=== PATIENT | male | born 1965 | race Caucasian/White ===

== ENCOUNTER 2017-07-09 08:00 | Outpatient (CLI) | payer OTHER ==
[2017-07-09 19:46] LABS: ALBUMIN 4.4 g/dL (3.2-5.5); ALBUMIN/GLOBULIN RATIO 1.8 (1.0-2.2); ALKALINE PHOSPHATASE 50 IU/L (42-121); ALT ALANINE AMINOTRANSFERASE 48 IU/L (10-60); AST ASPARTATE AMINOTRANSFERASE 31 IU/L (10-42); BILIRUBIN,TOTAL 0.6 mg/dL (0.2-1.0); BUN - BLOOD UREA NITROGEN 16 mg/dL (6-20); CALCIUM 9.5 mg/dL (8.5-10.3); CARBON DIOXIDE - CO2 25 mmol/L (21-32); CHLORIDE 105 mmol/L (101-111); CREATININE 0.8 mg/dL (0.6-1.2); GFR - MDRD 101 (>89); GLUCOSE 98 mg/dL (70-100); SODIUM 137 mmol/L (135-145); TOTAL PROTEIN 6.9 g/dL (6.7-8.2)
== END 2017-07-09 08:01 ==
LOC: LAB.WCP 08:00
PROVIDERS: ATTEND Family Medicine
DX: R63.4 Abnormal weight loss (principal)
CPT/HCPCS: 36415; 80053; 84443

== ENCOUNTER 2017-09-05 14:32 | Outpatient (CLI) | payer OTHER ==
--- NOTE | 2017-09-06 10:03 | Ultrasound Report ---
Procedure Date: 09/05/2017 Accession Number: [id number] / [id number] Procedure: US - Ankle Brachial Index CPT Code: FULL RESULT: EXAM: ULTRASOUND ANKLE-BRACHIAL INDEX EXAM DATE: 09/05/2017 03:40 PM. CLINICAL HISTORY: VARICOSE VEIN. Leg pain. COMPARISON: None. TECHNIQUE: Systolic blood pressures of the bilateral brachial arteries and posterior tibial arteries were measured. Doppler evaluation of the bilateral posterior tibial and dorsalis pedis arteries was performed. FINDINGS: Right: Brachial artery pressure: 112/60. Posterior tibial artery pressure: 119/ 64. Ankle/arm index: 1.04. Posterior tibial artery peak systolic velocity: 92 cm/s. Monophasic waveform. Dorsalis pedis artery peak systolic velocity: 33 cm/s. Monophasic waveform. Left: Brachial artery pressure: 114/66. Posterior tibial artery pressure: 113/65. Ankle/arm index: 0.99. Posterior tibial artery peak systolic velocity: 77 cm/s. Triphasic waveform. Dorsalis pedis artery peak systolic velocity: 58 cm/s. Triphasic waveform. IMPRESSION: 1. Right ankle brachial index: 1.04. 2. Left ankle brachial index: 0.99. RADIA
== END 2017-09-05 14:33 | disposition home or self-care (01) ==
LOC: DI 14:32
PROVIDERS: ATTEND Family Medicine
DX: M79.606 Pain in leg, unspecified (principal)
CPT/HCPCS: 93922

== ENCOUNTER 2020-07-18 17:56 | Emergency (ER) | payer MEDICAID, OTHER ==
[2020-07-18 18:10] VITALS: BP 123/73
--- OUTSIDE RECORDS SUMMARY | 2020-07-18 18:18 | EXTERNAL MEDICAL SUMMARY RPT | Continuity of Care Document ---
:1965 Demographics Phone Unavailable Preferred Language Unknown Marital Status Unknown Hindu Affiliation Unknown Race Unknown Ethnic Group Unknown Author Organization [facility] Address [address] [place] [address] Phone Social History date description facility [id number]
[2020-07-18] MEDS ORDERED: HYDROmorphone 1 MG/ML CARPUJECT IM STA (18:29)
--- NOTE | 2020-07-18 18:31 | ED Physician Documentation ---
PD HPI UPPER EXT INJURY - Stated complaint Stated Complaint: RT SIDE TINGLE/NO SLEEP - Chief complaint Chief Complaint: Ext Problem - History obtained from History obtained from: Patient - Additonal information Additional information: 55-year-old gentleman was awoken by pain at the top of the right scapula yesterday morning around 1 AM. Pain is sharp and better if he puts his right arm behind his head and flexes his neck. He has tried a lidocaine patch, naproxen and went to the walk-in clinic where he got some Flexeril. None of these been helpful. He denies fevers, chills, shortness of breath, cough. Noticed today that he had some transitory numbness in the right arm, When prompted where the symptoms were he said the first through third fingers, notes that it was worse after doing a lot of writing and filling his taxes out. Review of Systems Constitutional: denies: Fever, Chills Ears: denies: Loss of hearing, Ear pain Nose: denies: Rhinorrhea / runny nose, Congestion Cardiac: denies: Chest pain / pressure, Palpitations Respiratory: denies: Dyspnea, Cough PD PAST MEDICAL HISTORY - Present Medications Home Medications: Ambulatory Orders Medication Instructions Recorded Confirmed HYDROcod/ACETAM 5/325 [[place] 5/325] 1 - 2 tab PO Q6H PRN #15 tablet 07/18/20 - Allergies Allergies/Adverse Reactions: Allergies Allergy/AdvReac Type Severity Reaction Status Date / Time No Known Drug Allergies Allergy Verified 07/18/20 18:10 PD ED PE NORMAL - Vitals Vital signs reviewed: Yes - General General: Alert and oriented X 3, Other (He is holding both hands behind his head with his neck flexed although he does not seem to wince when he drops his hands or extends his neck.) - HEENT HEENT: PERRL, EOMI - Neck Neck: Supple, no meningeal sign, No bony TTP - Cardiac Cardiac: RRR, No murmur - Respiratory Respiratory: No respiratory distress, Clear bilaterally - Abdomen Abdomen: Non tender - Derm Derm: No rash - Extremities Extremities: Other (He has a lidocaine patch over the superior portion of the right scapula. 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 He has some symptoms in his hand, it is actually more consistent with carpal tunnel whenever anything else. No primary neck pain. Chest x-ray done without pertinent positive findings. Feeling better after meds here. Close follow-up was advised. Departure - Departure Disposition: 01 Home, Self Care Clinical Impression: Upper back pain, Neuropathy Condition: Good Record reviewed to determine appropriate education?: Yes Instructions: ED Acute Pain [facility] Prescriptions: HYDROcod/ACETAM 5/325 [[place] 5/325] 1 - 2 tab PO Q6H PRN #15 tablet PRN Reason: Pain Comments: Imperative to follow-up with your primary care physician this week for recheck and further evaluation and treatment. Return for new or worsening symptoms. You can Continue the muscle relaxer the urgent care today view in addition to the medications given here. Do not drink or drive while taking narcotic pain medication. Note that many narcotic pain relievers also contain Tylenol/acetaminophen. Please ensure that your total dose of acetaminophen from all sources does not exceed 3 g (3000 mg) per day. You may get constipated while on this medication. Take a stool softener such as Colace twice a day while you are on it. Also add an thbe-ruj-[id number] laxative such as senna or MiraLAX on any day that you do not have a bowel movement. If you received a narcotic pain medication or sedative while in the emergency department, do not drive for the next 24 hours. Discharge Date/Time: 07/18/20 19:59
--- NOTE | 2020-07-18 19:20 | XRAY Report ---
PROCEDURE: Chest 2 View X-Ray INDICATIONS: R upper back pain TECHNIQUE: 2 view(s) of the chest. COMPARISON: None. FINDINGS: Surgical changes and devices: None. Lungs and pleura: No pleural effusions or pneumothorax. Lungs are clear. Mediastinum: Mediastinal contours are normal. Heart size is normal. Bones and chest wall: No suspicious bony abnormalities. Soft tissues appear unremarkable. IMPRESSION: No acute disease. Reviewed by: Silverio Ureña MD on 07/18/2020 7:19 PM PDT Approved by: Silverio Ureña MD on 07/18/2020 7:19 PM PDT Station ID: [id number]
[2020-07-18] MEDS ORDERED: HYDROcod/ACET 5/325 Prepack 4 PO STA (19:33)
== END 2020-07-18 19:59 | disposition home or self-care (01) ==
LOC: ED 17:56
DX: M54.6 Pain in thoracic spine (principal); G62.9 Polyneuropathy, unspecified
CPT/HCPCS: 71046; 96372; 99283; 99284; J1170

== ENCOUNTER 2020-10-19 19:19 | Outpatient (CLI) | payer MEDICAID | END 2020-10-19 19:20 | disposition critical access hospital (66) | LOC: EMS 19:19 | DX: R55 Syncope and collapse (principal) | CPT/HCPCS: A0425; A0427; A0999 ==

== ENCOUNTER 2020-10-19 19:21 | Emergency (ER) | payer MEDICAID ==
[2020-10-19 20:05] LABS: BASOPHILS # (AUTO) 0.1 10^3/uL (0.0-0.1); BASOPHILS % (AUTO) 0.9 %; EOSINOPHILS # (AUTO) 0.3 10^3/uL (0.0-0.7); EOSINOPHILS % (AUTO) 3.7 %; LYMPHOCYTES # (AUTO) 2.7 10^3/uL (1.5-3.5); LYMPHOCYTES % (AUTO) 33.4 %; MEAN CORPUSCULAR HEMOGLOBIN 31.9 pg (27.0-31.0); MEAN CORPUSCULAR HGB CONC 33.3 g/dL (32.0-36.0); MEAN CORPUSCULAR VOLUME 95.8 fL (80.0-94.0); MEAN PLATELET VOLUME 8.9 fL (7.4-11.4); MONOCYTES # (AUTO) 0.3 10^3/uL (0.0-1.0); MONOCYTES % (AUTO) 4.2 %; NEUTROPHILS # (AUTO) 4.7 10^3/uL (1.5-6.6); NEUTROPHILS % (AUTO) 57.7 %; PLT - PLATELET COUNT 294 10^3/uL (130-450); RED BLOOD COUNT 4.07 10^6/uL (4.70-6.10); RED CELL DISTRIBUTION WIDTH 12.8 % (12.0-15.0); WHITE BLOOD COUNT 8.2 x10^3/uL (4.8-10.8)
[2020-10-19 20:14] LABS: ALBUMIN 4.2 g/dL (3.2-5.5); ALKALINE PHOSPHATASE 43 IU/L (42-121); ALT ALANINE AMINOTRANSFERASE 15 IU/L (10-60); AST ASPARTATE AMINOTRANSFERASE 19 IU/L (10-42); BILIRUBIN,TOTAL 0.7 mg/dL (0.2-1.0); BUN - BLOOD UREA NITROGEN 16 mg/dL (6-20); CALCIUM 9.1 mg/dL (8.5-10.3); CARBON DIOXIDE - CO2 26 mmol/L (21-32); CHLORIDE 103 mmol/L (101-111); CREATININE 0.9 mg/dL (0.6-1.2); GFR - MDRD 87 (>89); GLUCOSE 100 mg/dL (70-100); POTASSIUM 3.8 mmol/L (3.5-5.0); SODIUM 137 mmol/L (135-145); TOTAL PROTEIN 6.1 g/dL (6.7-8.2)
[2020-10-19 20:15] LABS: ALBUMIN/GLOBULIN RATIO 2.2 (1.0-2.2); ETOH - ETHANOL < 5.0 mg/dL
[2020-10-19] MEDS ORDERED: CIPROFLOX/DEXAMETH OTIC DROPS RIGHTEAR SCH (21:00)
--- NOTE | 2020-10-19 21:13 | ED Physician Documentation ---
History of Present Illness - Stated complaint Stated Complaint: SYNCOPE - Chief complaint Chief Complaint: Neuro - History obtained from History obtained from: Patient - Additonal information Additional information: 55-year-old man presents from walk-in clinic after fainting while urinating. Patient was there for follow-up after having a right-sided ear infection that resolved with antibiotic eardrops. He came back in because he started to have pain again today and then fainted while in the restroom. Patient states he had preceding nausea and then threw up after coming to. he had about 20 sec interval of unconsciousness. Review of Systems Ten Systems: 10 systems reviewed and negative Constitutional: denies: Fever, Chills Ears: reports: Ear pain, Drainage/discharge Cardiac: denies: Chest pain / pressure, Palpitations Respiratory: denies: Dyspnea GI: reports: Nausea, Vomiting. denies: Abdominal Pain, Diarrhea : denies: Dysuria Musculoskeletal: denies: Back pain Neurologic: reports: Syncope. denies: Focal weakness, Numbness, Headache, Head injury PD PAST MEDICAL HISTORY - Past Medical History Musculoskeletal: Chronic back pain - Past Surgical History Past Surgical History: Yes General: Other Ortho: Other - Allergies Allergies/Adverse Reactions: Allergies Allergy/AdvReac Type Severity Reaction Status Date / Time No Known Drug Allergies Allergy Verified 07/18/20 18:10 - Social History Does the pt smoke?: Yes Smoking Status: Current every day smoker Does the pt drink ETOH?: No Does the pt have substance abuse?: Yes - Immunizations Immunizations are current?: Yes PD ED PE NORMAL - Vitals Vital signs reviewed: Yes - General General: Alert and oriented X 3, No acute distress, Well developed/nourished - HEENT HEENT: Atraumatic, PERRL, EOMI, Other (R otitis externa. L TM and aud canal clear) - Neck Neck: Supple, no meningeal sign - Cardiac Cardiac: RRR - Respiratory Respiratory: No respiratory distress, Clear bilaterally - Abdomen Abdomen: Non tender, Non distended - Back Back: No CVA TTP, No spinal TTP - Derm Derm: Normal color - Extremities Extremities: No deformity - Neuro Neuro: Alert and oriented X 3, hand shoes sewer 2-12 intact, No motor deficit, No sensory deficit, Normal speech, Other (normal gait) - Psych Psych: Normal mood, Normal affect Results - Vitals Vitals: Vital Signs - 24 hr 10/19/20 10/19/20 10/19/20 19:25 19:34 19:52 Temperature 36.6 C Heart Rate 69 64 Heart Rate [ 65 Sitting] Heart Rate [ 68 Standing] Heart Rate [ 62 Supine] Respiratory 12 Rate Blood Pressure 125/83 H 126/85 H Blood Pressure 124/86 H [Sitting] Blood Pressure 128/92 H [Standing] Blood Pressure 112/74 [Supine] O2 Saturation 99 99 10/19/20 21:22 Temperature Heart Rate 63 Heart Rate [ Sitting] Heart Rate [ Standing] Heart Rate [ Supine] Respiratory Rate Blood Pressure 117/62 Blood Pressure [Sitting] Blood Pressure [Standing] Blood Pressure [Supine] O2 Saturation 100 Oxygen O2 Source Room air - EKG (time done) 1929 Rate: Rate (enter#) (56) Rhythm: Sinus bradycardia Palmer: Normal Intervals: Normal CT QRS: Normal Ischemia: Normal ST segments - Labs Labs: Laboratory Tests 10/19/20 10/19/20 10/19/20 19:56 19:56 19:56 WBC 8.2 RBC 4.07 L Hgb 13.0 L Hct 39.0 L MCV 95.8 H MCH 31.9 H MCHC 33.3 RDW 12.8 Plt Count 294 MPV 8.9 Neut # (Auto) 4.7 Lymph # (Auto) 2.7 Labette # (Auto) 0.3 Eos # (Auto) 0.3 Baso # (Auto) 0.1 Absolute Nucleated RBC 0.00 Nucleated RBC % 0.0 Sodium 137 Potassium 3.8 Chloride 103 Carbon Dioxide 26 Anion Gap 8.0 BUN 16 Creatinine 0.9 Estimated GFR (MDRD) 87 L Glucose 100 Calcium 9.1 Magnesium 2.0 Total Bilirubin 0.7 AST 19 ALT 15 Alkaline Phosphatase 43 Troponin I High Sens 2.4 Total Protein 6.1 L Albumin 4.2 Globulin 1.9 L Albumin/Globulin Ratio 2.2 Ethyl Alcohol < 5.0 PD MEDICAL DECISION MAKING - ED course ED course: 55-year-old man presents status post syncope while urinating at the walk-in clinic, also with right otitis externa. I offered the patient observation for echocardiogram but he declined, preferring to follow-up outpatient with his primary doctor. Strict return precautions given. Antibiotic eardrops provided. Departure - Departure Disposition: 01 Home, Self Care Clinical Impression: Syncope Condition: Good Instructions: Understanding Vasovagal Syncope Follow-Up: DOC GERARD MD [Physician No Access] - Comments: You were seen in the emergency department for a fainting episode at the walk-in clinic. Because it occurred in conjunction with urination, this is likely a micturition syncope (fainting spell related to urination). Your EKG, lab work, and physical exam uncovered no emergent findings. Please follow-up with your primary doctor this week and return to the emergency department if you have any new or worsening symptoms or other concerns. Please also follow-up with your primary doctor for referral to ear nose and throat in regards to your ear pain. Continue your antibiotic eardrops twice daily until complete. Discharge Date/Time: 10/19/20 21:22
[2020-10-19 21:23] VITALS: BP 117/62
== END 2020-10-19 21:22 | disposition home or self-care (01) ==
LOC: EDUNIT# → ED 19:21
DX: R55 Syncope and collapse (principal); H60.91 Unspecified otitis externa, right ear; R00.1 Bradycardia, unspecified; F17.200 Nicotine dependence, unspecified, uncomplicated
CPT/HCPCS: 36415; 80053; 80320; 83735; 84484; 85025; 93005; 99283; 99284; A9270

== ENCOUNTER 2020-11-19 09:06 | Outpatient (CLI) | payer MEDICAID ==
[2020-11-19 12:57] LABS: CHOL/HDL RATIO 3.6 (<5.0); CHOLESTEROL 214 mg/dL; HDL CHOLESTEROL 59 mg/dL; LDL CHOLESTEROL,CALCULATED 141 mg/dL; LDL/HDL RATIO 2.4 (<3.6); TRIGLYCERIDES 72 mg/dL; VLDL CHOLESTEROL 14 mg/dL
== END 2020-11-19 23:59 | disposition home or self-care (01) ==
LOC: LAB.WCP 09:06
PROVIDERS: ATTEND Nurse Practitioner
DX: E78.5 Hyperlipidemia, unspecified (principal); Z12.5 Encounter for screening for malignant neoplasm of prostate
CPT/HCPCS: 36415; 80061; 83721; 84153

== ENCOUNTER 2020-12-27 08:07 | Outpatient (CLI) | payer MEDICAID ==
[2020-12-27 12:20] LABS: BASOPHILS # (AUTO) 0.1 10^3/uL (0.0-0.1); BASOPHILS % (AUTO) 1.1 %; EOSINOPHILS # (AUTO) 0.3 10^3/uL (0.0-0.7); EOSINOPHILS % (AUTO) 4.4 %; HCT - HEMATOCRIT 43.7 % (42.0-52.0); HGB - HEMOGLOBIN 14.3 g/dL (14.0-18.0); LYMPHOCYTES # (AUTO) 2.9 10^3/uL (1.5-3.5); LYMPHOCYTES % (AUTO) 43.9 %; MEAN CORPUSCULAR HGB CONC 32.7 g/dL (32.0-36.0); MEAN CORPUSCULAR VOLUME 94.8 fL (80.0-94.0); MEAN PLATELET VOLUME 9.4 fL (7.4-11.4); MONOCYTES # (AUTO) 0.4 10^3/uL (0.0-1.0); MONOCYTES % (AUTO) 5.9 %; NEUTROPHILS # (AUTO) 2.9 10^3/uL (1.5-6.6); NEUTROPHILS % (AUTO) 44.5 %; PLT - PLATELET COUNT 356 10^3/uL (130-450); RED BLOOD COUNT 4.61 10^6/uL (4.70-6.10); WHITE BLOOD COUNT 6.6 x10^3/uL (4.8-10.8)
[2020-12-27 12:32] LABS: BILIRUBIN,URINE NEGATIVE (NEGATIVE); GLUCOSE, URINE (UA) NEGATIVE (NEGATIVE); KETONES,URINE (UA) NEGATIVE (NEGATIVE); LEUKOCYTE ESTERASE, URINE NEGATIVE (NEGATIVE); NITRITE,URINE NEGATIVE (NEGATIVE); OCCULT BLOOD,URINE NEGATIVE (NEGATIVE); PH,URINE 7.5 PH (5.0-7.5); PROTEIN,URINE NEGATIVE (NEGATIVE); UROBILINOGEN,URINE 0.2 (NORMAL) E.U./dL (NORMAL)
[2020-12-27 12:39] LABS: BACTERIA,URINE None Seen /HPF (None Seen); CLARITY,URINE CLEAR (CLEAR); RBC,URINE 0-5 /HPF (0-5); SQUAMOUS EPITHELIAL CELL,UR RARE Squamous (<= Few); WBC,URINE 0-3 /HPF (0-3)
[2020-12-27 13:29] LABS: ALBUMIN 4.2 g/dL (3.2-5.5); ALBUMIN/GLOBULIN RATIO 1.8 (1.0-2.2); BILIRUBIN,TOTAL 1.1 mg/dL (0.2-1.0); CALCIUM 9.5 mg/dL (8.5-10.3); CREATININE 0.9 mg/dL (0.6-1.2); POTASSIUM 3.9 mmol/L (3.5-5.0); TOTAL PROTEIN 6.5 g/dL (6.7-8.2)
== END 2020-12-27 23:59 | disposition home or self-care (01) ==
LOC: LAB.WCP 08:07
PROVIDERS: ATTEND Nurse Practitioner
DX: R10.13 Epigastric pain (principal)
CPT/HCPCS: 36415; 80053; 81001; 82150; 83690; 85025; 87086

== ENCOUNTER 2021-02-18 08:24 | Day surgery (SDC) | payer MEDICAID ==
[2021-02-18] MEDS ORDERED: LACTATED RINGERS 1,000 ML IV ONE ×2 (08:28→10:26)
--- NOTE | 2021-02-18 08:51 | ANESTHESIA ---
Pre-Anesthesia VS, & Labs - Diagnosis Epigastric pain and colon screening - Procedure EGD and Colonoscopy Vital Signs: Temp Pulse Resp BP Pulse Ox 36.7 C 72 12 137/89 H 100 02/18/21 08:30 02/18/21 08:30 02/18/21 08:30 02/18/21 08:30 02/18/21 08:30 Height: 5 ft 9 in Weight (kg): 63.7 kg Body Mass Index: 20.7 BMI Classification: Healthy weight - NPO >8 hours Home Medications and Allergies Home Medications: Ambulatory Orders Atorvastatin [Lipitor] 1 tab ORAL DAILY 02/16/21 Cholecalciferol (Vitamin D3) [Vitamin D3] 1,250 mcg PO DAILY 02/16/21 Curcumin 10 gm MC DAILY 02/16/21 Glutamine/Inulin/B5/Zinc/Aloe [Medcaps Gi Capsule] 1 each PO 02/16/21 Ary-3/Dha/Epa/Fish Oil [Fish Oil 1,000 mg Softgel] 1 each PO DAILY 02/16/21 traZODone [Desyrel] 50 mg PO HS 02/16/21 Atorvastatin [Lipitor] 1 tab ORAL DAILY 02/16/21 Cholecalciferol (Vitamin D3) [Vitamin D3] 1,250 mcg PO DAILY 02/16/21 Curcumin 10 gm MC DAILY 02/16/21 Glutamine/Inulin/B5/Zinc/Aloe [Medcaps Gi Capsule] 1 each PO 02/16/21 Ary-3/Dha/Epa/Fish Oil [Fish Oil 1,000 mg Softgel] 1 each PO DAILY 02/16/21 traZODone [Desyrel] 50 mg PO HS 02/16/21 Allergies/Adverse Reactions: Allergies Allergy/AdvReac Type Severity Reaction Status Date / Time ibuprofen Allergy Rash Verified 02/16/21 13:51 Anes History & Medical History - Anesthetic History Anesthesia Complications: reports: No previous complications - Medical History Cardiovascular: reports: High cholesterol Pulmonary: reports: None Gastrointestinal: reports: None Urinary: reports: None Neuro: reports: None Musculoskeletal: reports: Chronic back pain Endocrine/Autoimmune: reports: None Blood Disorders: reports: None Skin: reports: None Smoking Status: Former smoker (Quit 11/2020) Psychosocial: reports: Anxiety History of Cancer?: No - Surgical History General: reports: Other Orthopedic: reports: Other Exam General: Alert, Oriented x3, Cooperative, No acute distress Dental: WNL Mouth Openin Fingerbreadth Neck Mobility: Normal Mallampati classification: II Thyromental Distance: 4-6 cm Mental/Cognitive Status: Alert/Oriented X3, Normal for patient Plan Anesthesia Type: Total IV Consent for Procedure(s) Verified and Reviewed: Yes Code Status: Attempt Resuscitation ASA classification: 2-Mild systemic disease Is this case an emergency?: No
[2021-02-18] MEDS ORDERED: PROPOFOL 500 MG/50 ML 500 MG/50 ML VIAL ONE (08:59)
[2021-02-18] MEDS ORDERED: LIDOCAINE-MPF 2% 5 ML VIAL ONE (08:59)
--- NOTE | 2021-02-18 09:28 | HISTORY & PHYSICAL EXAMINATION ---
Chief Complaint - Chief Complaint Chief Complaint: epigastric pain History of Present Illness - History Obtained From Records Reviewed: yes History obtained from: pt Exam Limitations: none - History of Present Illness HPI Comment/Other: History epigastric pain and weight loss. Starting to feel better. History - Past Medical History Cardiovascular: reports: High cholesterol Respiratory: reports: None Neuro: reports: None Endocrine/Autoimmune: reports: None GI: reports: None : reports: None HEENT: reports: None Psych: reports: Anxiety Musculoskeletal: reports: Chronic back pain Derm: reports: None MRSA Hx?: No - Past Surgical History General: reports: Other Ortho: reports: Other Meds/Allgy - Home Medications Home Medications: Ambulatory Orders Medication Instructions Recorded Confirmed Atorvastatin [Lipitor] 1 tab ORAL DAILY 02/16/21 02/16/21 Cholecalciferol (Vitamin D3) 1,250 mcg PO DAILY 02/16/21 02/16/21 [Vitamin D3] Curcumin 10 gm MC DAILY 02/16/21 02/16/21 Glutamine/Inulin/B5/Zinc/Aloe 1 each PO 02/16/21 [Medcaps Gi Capsule] Early-3/Dha/Epa/Fish Oil [Fish Oil 1 each PO DAILY 02/16/21 02/16/21 1,000 mg Softgel] traZODone [Desyrel] 50 mg PO HS 02/16/21 02/16/21 - Allergies Allergies/Adverse Reactions: Allergies Allergy/AdvReac Type Severity Reaction Status Date / Time ibuprofen Allergy Rash Verified 02/16/21 13:51 Review of Systems - Other Findings Other Findings: 10 pt ros as above otherwise unremarkable Exam - Vital Signs Reviewed Vital Signs: Yes Vital Signs: Vital Signs x48h Temp Pulse Resp BP Pulse Ox 02/18/21 08:30 36.7 C 72 12 137/89 H 100 - Physical Exam General Appearance: positive: Alert, Mild distress Eyes Bilateral: positive: PERRL, EOMI Neck: positive: No JVD Respiratory: positive: No respiratory distress, Breath sounds nml Cardiovascular: positive: Regular rate & rhythm Abdomen: positive: Non-tender, No distention Neurologic/Psychiatric: positive: Oriented x3 Conclusion/Plan - Problem List (1) Colon cancer screening Conclusion/Plan: plan colonoscopy. Plan egd for history epigastric pain and weight loss. parq held and consent obtained
[2021-02-18] MEDS ORDERED: PROPOFOL 200 MG/20 ML VIAL IVP ONE (10:21)
--- NOTE | 2021-02-18 10:50 | ANESTHESIA POST OP EVALUATION ---
Anesthesia Post Eval - Post Anesthesia Eval Vitals: Last Vital Signs Temp 36.6 C 02/18/21 10:46 Pulse 70 02/18/21 10:46 Resp 17 02/18/21 10:46 BP 122/87 H 02/18/21 10:46 Pulse Ox 99 02/18/21 10:46 CV Function Including HR & BP: Stable Pain Control: Satisfactory Nausea & Vomiting: Negative Mental Status: Baseline Respiratory Status: Airway Patent Hydration Status: Satisfactory Anesthesia Complications: None
[2021-02-18 11:05] VITALS: BP 119/89
== END 2021-02-18 08:25 | disposition home or self-care (01) ==
LOC: SDS 08:24
PROVIDERS: ATTEND Surgery
PROC: 0DB78ZX Excision of Stomach, Pylorus, Via Natural or Artificial Opening Endoscopic, Diagnostic (ICD-10-PCS; principal; 2021-02-18 09:30)
DX: Z12.11 Encounter for screening for malignant neoplasm of colon (principal); K57.30 Diverticulosis of large intestine without perforation or abscess without bleeding; K29.50 Unspecified chronic gastritis without bleeding; E78.00 Pure hypercholesterolemia, unspecified; F41.8 Other specified anxiety disorders; Z79.899 Other long term (current) drug therapy; Z87.891 Personal history of nicotine dependence
CPT/HCPCS: 43239; 45378; J7120

== ENCOUNTER 2022-03-03 09:06 | Outpatient (CLI) | payer MEDICAID ==
[2022-03-03 12:28] LABS: BASOPHILS # (AUTO) 0.1 10^3/uL (0.0-0.1); EOSINOPHILS # (AUTO) 0.2 10^3/uL (0.0-0.7); EOSINOPHILS % (AUTO) 3.5 %; HCT - HEMATOCRIT 46.7 % (42.0-52.0); HGB - HEMOGLOBIN 15.1 g/dL (14.0-18.0); LYMPHOCYTES # (AUTO) 2.8 10^3/uL (1.5-3.5); LYMPHOCYTES % (AUTO) 41.7 %; MEAN CORPUSCULAR HEMOGLOBIN 30.5 pg (27.0-31.0); MEAN CORPUSCULAR HGB CONC 32.3 g/dL (32.0-36.0); MEAN CORPUSCULAR VOLUME 94.3 fL (80.0-94.0); MEAN PLATELET VOLUME 10.3 fL (7.4-11.4); MONOCYTES # (AUTO) 0.4 10^3/uL (0.0-1.0); MONOCYTES % (AUTO) 5.2 %; NEUTROPHILS # (AUTO) 3.3 10^3/uL (1.5-6.6); NEUTROPHILS % (AUTO) 48.5 %; PLT - PLATELET COUNT 295 10^3/uL (130-450); RED BLOOD COUNT 4.95 10^6/uL (4.70-6.10); RED CELL DISTRIBUTION WIDTH 12.4 % (12.0-15.0); WHITE BLOOD COUNT 6.8 x10^3/uL (4.8-10.8)
[2022-03-03 12:59] LABS: ALBUMIN 4.5 g/dL (3.2-5.5); ALBUMIN/GLOBULIN RATIO 1.7 (1.0-2.2); ALKALINE PHOSPHATASE 57 IU/L (42-121); ALT ALANINE AMINOTRANSFERASE 32 IU/L (10-60); AST ASPARTATE AMINOTRANSFERASE 28 IU/L (10-42); BILIRUBIN,TOTAL 0.5 mg/dL (0.2-1.0); BUN - BLOOD UREA NITROGEN 19 mg/dL (6-20); CALCIUM 9.6 mg/dL (8.5-10.3); CARBON DIOXIDE - CO2 28 mmol/L (21-32); CHLORIDE 103 mmol/L (101-111); CHOL/HDL RATIO 3.6 (<5.0); CHOLESTEROL 214 mg/dL; CREATININE 0.9 mg/dL (0.6-1.2); GFR - MDRD 87 (>89); GLUCOSE 100 mg/dL (70-100); HDL CHOLESTEROL 59 mg/dL; LDL CHOLESTEROL,CALCULATED 143 mg/dL; LDL/HDL RATIO 2.4 (<3.6); POTASSIUM 4.3 mmol/L (3.5-5.0); SODIUM 140 mmol/L (135-145); THYROID STIMULATING HORMONE 1.79 uIU/mL (0.34-5.60); TOTAL PROTEIN 7.2 g/dL (6.7-8.2); TRIGLYCERIDES 59 mg/dL; VLDL CHOLESTEROL 12 mg/dL
[2022-03-04 06:09] LABS: HCV AB 0.1 s/co ratio (0.0-0.9)
== END 2022-03-03 09:07 | disposition home or self-care (01) ==
LOC: LAB.N 09:06
PROVIDERS: ATTEND Nurse Practitioner
DX: Z01.84 Encounter for antibody response examination (principal); E78.5 Hyperlipidemia, unspecified; R53.83 Other fatigue; Z12.5 Encounter for screening for malignant neoplasm of prostate; F41.9 Anxiety disorder, unspecified; F32.A Depression, unspecified
CPT/HCPCS: 36415; 80053; 80061; 83721; 84153; 84443; 85025; 86803

== ENCOUNTER 2022-11-14 14:06 | Outpatient (CLI) | payer MEDICAID ==
--- NOTE | 2022-11-14 16:54 | XRAY Report ---
PROCEDURE: Knee 4 View LT INDICATIONS: DJD KNEE LEFT TECHNIQUE: 4 views of the left knee(s) were acquired. COMPARISON: None. FINDINGS: Bones: No fractures or dislocations. No suspicious bony lesions. Mild tricompartmental periarticu lar osteophyte formation. Soft tissues: No knee joint effusion. No suspicious soft tissue calcifications or masses. IMPRESSION: Osteoarthritis. No acute fracture. No osseous lesion. If symptoms and/or clinical suspicion for patho logy continue, further assessment with repeat plain films, or advanced imaging (e.g., CT, MRI, or bon e scan) is recommended for further assessment. Reviewed by: Viktor Mckee MD on 11/14/2022 4:53 PM PDT Approved by: Viktor Mckee MD on 11/14/2022 4:53 PM PDT Station ID: [id number]
== END 2022-11-14 14:07 | disposition home or self-care (01) ==
LOC: DI 14:06
PROVIDERS: ATTEND Nurse Practitioner
DX: M17.12 Unilateral primary osteoarthritis, left knee (principal)

== ENCOUNTER 2023-03-12 08:20 | Outpatient (CLI) | payer MEDICAID ==
[2023-03-12 12:42] LABS: BASOPHILS # (AUTO) 0.1 10^3/uL (0.0-0.1); BASOPHILS % (AUTO) 1.2 %; EOSINOPHILS # (AUTO) 0.2 10^3/uL (0.0-0.7); HCT - HEMATOCRIT 46.7 % (42.0-52.0); LYMPHOCYTES # (AUTO) 2.4 10^3/uL (1.5-3.5); MEAN CORPUSCULAR HEMOGLOBIN 30.5 pg (27.0-31.0); MEAN CORPUSCULAR HGB CONC 32.1 g/dL (32.0-36.0); MEAN CORPUSCULAR VOLUME 95.1 fL (80.0-94.0); MEAN PLATELET VOLUME 10.4 fL (7.4-11.4); MONOCYTES # (AUTO) 0.4 10^3/uL (0.0-1.0); NEUTROPHILS # (AUTO) 2.6 10^3/uL (1.5-6.6); NEUTROPHILS % (AUTO) 45.6 %; PLT - PLATELET COUNT 321 10^3/uL (130-450); RED BLOOD COUNT 4.91 10^6/uL (4.70-6.10); RED CELL DISTRIBUTION WIDTH 12.7 % (12.0-15.0); WHITE BLOOD COUNT 5.7 x10^3/uL (4.8-10.8)
[2023-03-12 13:17] LABS: ALBUMIN 4.3 g/dL (3.2-5.5); ALBUMIN/GLOBULIN RATIO 1.8 (1.0-2.2); ALKALINE PHOSPHATASE 55 IU/L (42-121); ALT ALANINE AMINOTRANSFERASE 21 IU/L (10-60); AST ASPARTATE AMINOTRANSFERASE 21 IU/L (10-42); BILIRUBIN,TOTAL 0.7 mg/dL (0.2-1.0); BUN - BLOOD UREA NITROGEN 15 mg/dL (6-20); CALCIUM 9.7 mg/dL (8.5-10.3); CARBON DIOXIDE - CO2 29 mmol/L (21-32); CHLORIDE 106 mmol/L (101-111); CHOL/HDL RATIO 4.3 (<5.0); CHOLESTEROL 256 mg/dL; CREATININE 0.8 mg/dL (0.6-1.3); GFR - MDRD 99 (>89); GLUCOSE 92 mg/dL (74-104); HDL CHOLESTEROL 59 mg/dL; LDL CHOLESTEROL,CALCULATED 181 mg/dL; LDL/HDL RATIO 3.1 (<3.6); POTASSIUM 4.3 mmol/L (3.5-4.5); SODIUM 139 mmol/L (135-145); TOTAL PROTEIN 6.7 g/dL (6.4-8.9); TRIGLYCERIDES 80 mg/dL (48-352); VLDL CHOLESTEROL 16 mg/dL
[2023-03-12 13:22] LABS: THYROID STIMULATING HORMONE 2.21 uIU/mL (0.34-5.60)
== END 2023-03-12 08:21 | disposition home or self-care (01) ==
LOC: LAB.N 08:20
PROVIDERS: ATTEND Nurse Practitioner
DX: E78.5 Hyperlipidemia, unspecified (principal); Z51.81 Encounter for therapeutic drug level monitoring; Z12.5 Encounter for screening for malignant neoplasm of prostate; R53.83 Other fatigue; F41.9 Anxiety disorder, unspecified; F32.A Depression, unspecified; Z79.899 Other long term (current) drug therapy
CPT/HCPCS: 36415; 80053; 80061; 83721; 84153; 84443; 85025

== ENCOUNTER 2023-05-04 10:43 | Outpatient (CLI) | payer MEDICAID ==
[2023-05-04 17:44] LABS: BASOPHILS # (AUTO) 0.1 10^3/uL (0.0-0.1); BASOPHILS % (AUTO) 1.2 %; EOSINOPHILS # (AUTO) 0.1 10^3/uL (0.0-0.7); EOSINOPHILS % (AUTO) 1.8 %; HCT - HEMATOCRIT 47.9 % (42.0-52.0); HGB - HEMOGLOBIN 15.3 g/dL (14.0-18.0); LYMPHOCYTES # (AUTO) 2.2 10^3/uL (1.5-3.5); LYMPHOCYTES % (AUTO) 33.9 %; MEAN CORPUSCULAR HEMOGLOBIN 30.4 pg (27.0-31.0); MEAN CORPUSCULAR HGB CONC 31.9 g/dL (32.0-36.0); MEAN CORPUSCULAR VOLUME 95.2 fL (80.0-94.0); MEAN PLATELET VOLUME 10.4 fL (7.4-11.4); MONOCYTES # (AUTO) 0.4 10^3/uL (0.0-1.0); MONOCYTES % (AUTO) 5.5 %; NEUTROPHILS # (AUTO) 3.8 10^3/uL (1.5-6.6); NEUTROPHILS % (AUTO) 57.4 %; PLT - PLATELET COUNT 322 10^3/uL (130-450); RED BLOOD COUNT 5.03 10^6/uL (4.70-6.10); RED CELL DISTRIBUTION WIDTH 12.6 % (12.0-15.0); WHITE BLOOD COUNT 6.6 x10^3/uL (4.8-10.8)
[2023-05-04 18:08] LABS: ALBUMIN 4.4 g/dL (3.2-5.5); ALBUMIN/GLOBULIN RATIO 1.8 (1.0-2.2); BILIRUBIN,TOTAL 0.7 mg/dL (0.2-1.0); CALCIUM 9.7 mg/dL (8.5-10.3); CREATININE 0.9 mg/dL (0.6-1.3); POTASSIUM 4.4 mmol/L (3.5-4.5); TOTAL PROTEIN 6.9 g/dL (6.4-8.9)
== END 2023-05-04 10:44 | disposition home or self-care (01) ==
LOC: LAB.N 10:43
PROVIDERS: ATTEND Nurse Practitioner
DX: R25.3 Fasciculation (principal)
CPT/HCPCS: 36415; 80053; 85025